=== PATIENT | male | born 1940 | race Caucasian/White ===

== ENCOUNTER 2020-12-11 10:11 | Day surgery (SDC) | payer MEDICARE ==
[~2020-12-11 10:11] MED LIST: Acetaminophen 500 MG TAB ONE; Acetaminophen 500 MG TAB PO SCH; diphenhydrAMINE 50 MG/ML VIAL IVP SCH; diphenhydrAMINE 50 MG/ML VIAL ONE
== END 2020-12-11 12:15 | disposition home or self-care (01) ==
LOC: CSHSDC/OP 10:11
PROVIDERS: ATTEND Family Medicine
DX: Z23 Encounter for immunization (principal); U07.1 COVID-19
CPT/HCPCS: M0243; Q0243; J1200; J7050